=== PATIENT | female | born 1990 | race Caucasian/White ===

== ENCOUNTER 2023-11-17 18:00 | Inpatient (IN) | payer MEDICAID ==
[~2023-11-17] VITALS: Ht 162.6 cm; Wt 65.3 kg
[2023-11-17 18:42] VITALS: BP 100/65; PULSE 66; RESP 16; TEMP 98.6; O2SAT 100
[2023-11-17] MEDS: NACL 0.9% 1,000 ML IV ONE (19:08)
[2023-11-17] MEDS: ONDANSETRON 4 MG/2 ML VIAL IVP ONE (19:09)
[2023-11-17] MEDS: MORPHINE SULFATE 4 MG/ML SYR IVP ONE (19:10)
[2023-11-17 19:12] LABS: BASOPHILS # (AUTO) 0.1 K/uL (0.00-0.22); BASOPHILS % (AUTO) 0.9 % (0.0-2.0); EOSINOPHILS # (AUTO) 1.7 K/uL (0-0.4); HEMOGLOBIN 12.2 g/dL (12.0-16.0); LYMPHOCYTES # (AUTO) 3.1 K/uL (2.5-16.5); LYMPHOCYTES % (AUTO) 32.3 % (20.5-51.1); MEAN CORPUSCULAR HEMOGLOBIN 28 pg (27-31); MEAN CORPUSCULAR HGB CONC 33 g/dL (33-37); MONOCYTES # (AUTO) 0.7 K/uL (0.8-1.0); MONOCYTES % (AUTO) 6.7 % (1.7-9.3); NEUTROPHILS # (AUTO) 4.2 K/uL (1.8-7.7); PLATELET COUNT (AUTO) 251 K/uL (140-450); RED BLOOD CELL COUNT(AUTO) 4.35 MIL/uL (4.20-5.40); RED CELL DISTRIBUTION WIDTH 14.9 % (11.6-13.7); WHITE BLOOD COUNT (AUTO) 9.7 K/uL (4.8-10.8)
[2023-11-17 19:18] LABS: EOSINOPHILS % (AUTO) 17.1 % (0.0-4.0)
[2023-11-17 19:26] LABS: ANION GAP 6.6 (8-16); CALCIUM 8.9 mg/dL (8.5-10.1); CARBON DIOXIDE 31.7 mmol/L (21-32); CREATININE 0.7 mg/dL (0.6-1.3); POTASSIUM 3.3 mmol/L (3.5-5.1)
[2023-11-17 19:42] LABS: ALBUMIN 3.8 g/dL (3.4-5.0); BILIRUBIN,DIRECT 0.1 mg/dL (0.0-0.3); TOTAL BILIRUBIN 0.6 mg/dL (0.0-1.0); TOTAL PROTEIN, SERUM 7.7 g/dL (6.4-8.2)
[2023-11-17] MEDS ORDERED: ZOLPIDEM 5 MG TAB PO PRN (23:15)
[2023-11-17] MEDS ORDERED: LORazepam 1 MG TAB PO PRN (23:15)
[2023-11-17] MEDS ORDERED: OMEP20EC11 PO (23:24)
[2023-11-18] MEDS: MORPHINE SULFATE 2 MG/ML SYR IVP PRN (00:08)
[2023-11-18] MEDS: NACL 0.9% 1,000 ML IV SCH (00:08)
[2023-11-18] MEDS: ONDANSETRON 4 MG/2 ML VIAL IVP PRN (00:10)
[2023-11-18] MEDS: NACL 0.9% 1,000 ML IV ONE (01:41)
[2023-11-18] MEDS: ACETAMINOPHEN 325 MG TAB PO PRN (05:43)
[2023-11-18 07:38] VITALS: O2SAT 94
[2023-11-18] MEDS: DOCUSATE SODIUM 100 MG GELCAP PO SCH (09:00)
[2023-11-18 10:37] LABS: HEMATOCRIT 36.5 % (36-48); HEMOGLOBIN 11.9 g/dL (12.0-16.0); MEAN CORPUSCULAR HEMOGLOBIN 28 pg (27-31); MEAN CORPUSCULAR HGB CONC 33 g/dL (33-37); MEAN CORPUSCULAR VOLUME 85.6 fL (80-94); PLATELET COUNT (AUTO) 225 K/uL (140-450); RED BLOOD CELL COUNT(AUTO) 4.27 MIL/uL (4.20-5.40); RED CELL DISTRIBUTION WIDTH 14.5 % (11.6-13.7); WHITE BLOOD COUNT (AUTO) 6.5 K/uL (4.8-10.8)
[2023-11-18] MEDS: PANTOPRAZOLE 40 MG INJ VIAL IVP SCH (10:50)
[2023-11-18 11:05] LABS: ALBUMIN 3.1 g/dL (3.4-5.0); ANION GAP 10.3 (8-16); CALCIUM 8.1 mg/dL (8.5-10.1); CARBON DIOXIDE 27.6 mmol/L (21-32); CREATININE 0.6 mg/dL (0.6-1.3); POTASSIUM 3.9 mmol/L (3.5-5.1); TOTAL BILIRUBIN 1.1 mg/dL (0.0-1.0); TOTAL PROTEIN, SERUM 6.4 g/dL (6.4-8.2)
[2023-11-18 11:41] LABS: MONOCYTES % (MANUAL) 5 % (5-12)
[2023-11-18 11:45] LABS: BASOPHILS % (MANUAL) 1 % (0-2); EOSINOPHILS % (MANUAL) 22 % (0-4); LYMPHOCYTES % (MANUAL) 31 % (20-46)
[2023-11-18 11:47] LABS: PLATELET ESTIMATE ADEQUATE
[2023-11-18 16:00] VITALS: BP 94/60; PULSE 63; RESP 16; TEMP 209.5; O2SAT 94
[2023-11-18 20:00] VITALS: BP 90/55; PULSE 62; RESP 16; TEMP 97.5; O2SAT 94
[2023-11-18 20:01] VITALS: PULSE 63; RESP 16; O2SAT 94
[2023-11-19] VITALS: BP 93/56; PULSE 62; RESP 16; TEMP 97.6; O2SAT 94
[2023-11-19 04:00] VITALS: BP 91/54; PULSE 62; RESP 16; TEMP 97.6; O2SAT 94
[2023-11-19 06:47] LABS: BASOPHILS # (AUTO) 0.1 K/uL (0.00-0.22); BASOPHILS % (AUTO) 0.9 % (0.0-2.0); EOSINOPHILS # (AUTO) 1.4 K/uL (0-0.4); EOSINOPHILS % (AUTO) 21.6 % (0.0-4.0); HEMATOCRIT 36.3 % (36-48); HEMOGLOBIN 12.1 g/dL (12.0-16.0); LYMPHOCYTES # (AUTO) 1.8 K/uL (2.5-16.5); LYMPHOCYTES % (AUTO) 29.3 % (20.5-51.1); MEAN CORPUSCULAR HEMOGLOBIN 28 pg (27-31); MEAN CORPUSCULAR HGB CONC 33 g/dL (33-37); MEAN CORPUSCULAR VOLUME 84.6 fL (80-94); MONOCYTES # (AUTO) 0.4 K/uL (0.8-1.0); MONOCYTES % (AUTO) 5.6 % (1.7-9.3); NEUTROPHILS # (AUTO) 2.7 K/uL (1.8-7.7); NEUTROPHILS % (AUTO) 42.6 % (42.2-75.2); PLATELET COUNT (AUTO) 227 K/uL (140-450); RED BLOOD CELL COUNT(AUTO) 4.29 MIL/uL (4.20-5.40); RED CELL DISTRIBUTION WIDTH 14.5 % (11.6-13.7); WHITE BLOOD COUNT (AUTO) 6.3 K/uL (4.8-10.8)
[2023-11-19 07:34] LABS: ALBUMIN 3.2 g/dL (3.4-5.0); ANION GAP 10.9 (8-16); CALCIUM 8.6 mg/dL (8.5-10.1); CREATININE 0.7 mg/dL (0.6-1.3); POTASSIUM 3.9 mmol/L (3.5-5.1); TOTAL BILIRUBIN 1.1 mg/dL (0.0-1.0); TOTAL PROTEIN, SERUM 6.8 g/dL (6.4-8.2)
[2023-11-19 08:00] VITALS: PULSE 63; RESP 16; O2SAT 91
[2023-11-19 08:33] VITALS: BP 87/57; PULSE 65; RESP 16; TEMP 97.8; O2SAT 91
[2023-11-19 20:00] VITALS: BP 89/59; PULSE 68; RESP 16; RESP 18; TEMP 96.5; O2SAT 91; O2SAT 93
[2023-11-20] MEDS ORDERED: NACL 0.9% 1,000 ML IV SCH (01:15)
[2023-11-20] MEDS: NACL 0.9% 1,000 ML IV ONE ×2 (02:06→04:06)
[2023-11-20 02:57] LABS: APPEARANCE,URINE CLEAR (CLEAR); BILIRUBIN,URINE NEGATIVE (NEGATIVE); BLOOD, URINE 2+ (NEGATIVE); COLOR,URINE YELLOW (YELLOW); LEUKOCYTE ESTERASE ,URINE NEGATIVE (NEGATIVE); NITRITE, URINE NEGATIVE (NEGATIVE); PROTEIN,URINE NEGATIVE (NEGATIVE); UGLUCOSE NEGATIVE (NEGATIVE); UROBILINOGEN,URINE 0.2 EU/dL (0.2 - 1)
[2023-11-20 03:05] LABS: BACTERIA,URINE 10-30 (MOD) /HPF (None Seen); MUCUS,URINE 1+ /LPF (None Seen); SQUAMOUS EPITHELIAL CELL,UR 0-3 (FEW) /LPF (0-3 (FEW)); WBC,URINE 0-5 /HPF (0-5)
[2023-11-20 04:00] VITALS: BP 97/69; PULSE 61; RESP 18; TEMP 97.5; O2SAT 98
[2023-11-20 07:05] LABS: BASOPHILS # (AUTO) 0.1 K/uL (0.00-0.22); BASOPHILS % (AUTO) 1.1 % (0.0-2.0); EOSINOPHILS # (AUTO) 1.5 K/uL (0-0.4); EOSINOPHILS % (AUTO) 20.5 % (0.0-4.0); HEMATOCRIT 38.1 % (36-48); HEMOGLOBIN 12.5 g/dL (12.0-16.0); LYMPHOCYTES # (AUTO) 2.6 K/uL (2.5-16.5); LYMPHOCYTES % (AUTO) 33.9 % (20.5-51.1); MEAN CORPUSCULAR HEMOGLOBIN 28 pg (27-31); MEAN CORPUSCULAR HGB CONC 33 g/dL (33-37); MEAN CORPUSCULAR VOLUME 84.8 fL (80-94); MONOCYTES # (AUTO) 0.4 K/uL (0.8-1.0); MONOCYTES % (AUTO) 5.9 % (1.7-9.3); NEUTROPHILS # (AUTO) 2.9 K/uL (1.8-7.7); NEUTROPHILS % (AUTO) 38.6 % (42.2-75.2); PLATELET COUNT (AUTO) 229 K/uL (140-450); RED CELL DISTRIBUTION WIDTH 14.3 % (11.6-13.7); WHITE BLOOD COUNT (AUTO) 7.5 K/uL (4.8-10.8)
[2023-11-20 08:00] VITALS: BP 98/69; PULSE 76; RESP 16; RESP 18; TEMP 96.6; O2SAT 100
[2023-11-20 08:26] LABS: ALBUMIN 3.2 g/dL (3.4-5.0); ANION GAP 12.5 (8-16); CALCIUM 8.2 mg/dL (8.5-10.1); CARBON DIOXIDE 23.4 mmol/L (21-32); CREATININE 0.6 mg/dL (0.6-1.3); POTASSIUM 3.9 mmol/L (3.5-5.1); TOTAL BILIRUBIN 0.8 mg/dL (0.0-1.0); TOTAL PROTEIN, SERUM 6.7 g/dL (6.4-8.2)
[2023-11-20] MEDS ORDERED: PANT40EC PO (15:49)
[2023-11-20] MEDS ORDERED: IBUP-1842 PO (15:54)
[2023-11-20 16:00] VITALS: BP 105/68; PULSE 78; RESP 18; TEMP 97; O2SAT 100
== END 2023-11-20 17:25 | disposition home or self-care (01) ==
LOC: MED 18:00 → MTU 23:17
PROVIDERS: ADMIT Student in an Organized Health Care Education/Training Program; ATTEND Student in an Organized Health Care Education/Training Program
DX: K80.20 Calculus of gallbladder without cholecystitis without obstruction (principal); E87.6 Hypokalemia; Z79.899 Other long term (current) drug therapy
CPT/HCPCS: 36415; 76705; 78445; 80048; 80053; 80076; 81001; 83690; 85025; 87040; 87086; 96361; 96374; 96375; 99285; A9510; J2270; J2405; J2470; Q0092